=== PATIENT | male | born 1975 | race African-American/Black ===

== ENCOUNTER 2017-06-02 11:06 | Emergency (ER) | payer OTHER ==
[~2017-06-02] VITALS: Ht 167.6 cm; Wt 59.0 kg
== END 2017-06-02 12:44 | disposition home or self-care (01) ==
LOC: CED 11:06
DX: S39.011A Strain of muscle, fascia and tendon of abdomen, initial encounter (principal); S39.012A Strain of muscle, fascia and tendon of lower back, initial encounter; F17.200 Nicotine dependence, unspecified, uncomplicated; X58.XXXA Exposure to other specified factors, initial encounter; Y92.9 Unspecified place or not applicable
CPT/HCPCS: 99283